=== PATIENT | female | born 1965 | race Two or more races ===

== ENCOUNTER 2017-01-08 09:58 | Outpatient (CLI) | payer OTHER ==
--- NOTE | 2017-01-08 17:24 | XRAY Report ---
COMPLETE CERVICAL SPINE: 01/08/2017 CLINICAL INDICATION: Strain, pain. AP, lateral, oblique, odontoid views of the cervical spine demonstrate normal height and alignment of the vertebral bodies. The disk spaces are preserved. The prevertebral soft tissues are unremarkabl e. No osseous neural foraminal narrowing is seen. IMPRESSION: NORMAL CERVICAL SPINE. JOB #: [id number] EXT JOB #:[id number]
--- NOTE | 2017-01-08 17:25 | XRAY Report ---
THREE VIEW THORACIC SPINE: 01/08/2017 CLINICAL INDICATION: Pain. AP, swimmer's, lateral views of the thoracic spine demonstrate minimal degenerative disk disease, wit h small osteophytes. There is no evidence of fracture or subluxation. No paraspinal hematoma is see n. IMPRESSION: MINIMAL DEGENERATIVE DISK DISEASE. JOB #: [id number] EXT JOB #:[id number]
--- NOTE | 2017-01-08 17:27 | XRAY Report ---
COMPLETE LUMBAR SPINE: 01/08/2017 CLINICAL INDICATION: Back pain. AP, lateral, oblique, coned-down views of the lumbar spine demonstrate mild degenerative disk disease , with small anterior osteophytes. There is no evidence of fracture or subluxation. The bowel gas p attern is unremarkable. IMPRESSION: MILD DEGENERATIVE DISK DISEASE. JOB #: [id number] EXT JOB #:[id number]
== END 2017-01-08 09:59 | disposition home or self-care (01) ==
LOC: DI 09:58
PROVIDERS: ATTEND Physician Assistant Medical
DX: M51.34 Other intervertebral disc degeneration, thoracic region (principal); M51.36 Other intervertebral disc degeneration, lumbar region
CPT/HCPCS: 72050; 72070; 72100

== ENCOUNTER 2018-07-25 15:18 | Outpatient (CLI) | payer SELFPAY ==
--- NOTE | 2018-07-25 16:15 | XRAY Report ---
Reason: BITTEN BY DOG, INITIAL ENCOUNTER Procedure Date: 07/25/2018 Accession Number: [id number] / [id number] Procedure: WCP - Wrist 3 View LT CPT Code: FULL RESULT: EXAM: LEFT WRIST RADIOGRAPHY EXAM DATE: 07/25/2018 03:28 PM. CLINICAL HISTORY: Dog bite to ulnar side of wrist and along the fifth metacarpal. COMPARISON: None. TECHNIQUE: 3 views. FINDINGS: Bones: Normal. No fractures or bone lesions. Joints: Normal. No subluxations. Soft Tissues: Normal. No soft tissue swelling. IMPRESSION: Normal wrist radiography. No fracture or foreign body. [facility]
== END 2018-07-25 15:19 | disposition home or self-care (01) ==
LOC: DI.WCP 15:18
PROVIDERS: ATTEND Physician Assistant Medical
DX: S61.552A Open bite of left wrist, initial encounter (principal)